=== PATIENT | male | born 1960 ===

== ENCOUNTER 2023-07-29 13:08 | Day surgery (SDC) | payer OTHER ==
[~2023-07-29] VITALS: Ht 185.4 cm; Wt 115.0 kg
[~2023-07-29 13:08] MED LIST: Balanced Salt Epinephrine Irrigation Solution 500 mL IR SCH; Lidocaine HCl/Pf 1% 5 ML VIAL XX SCH; Moxifloxacin HCL 0.5 MG/0.1 ML 0.4MLSYR RIGHTEYE SCH; NS 500 ML IV ONE; PHENYLEPHRINE\\TROPICAMIDE\\TETRACAINE OPHTHALMIC DILATING SOLN RIGHTEYE PRN; Povidone-Iodine 450 DROP/30 ML Solution RIGHTEYE SCH
[2023-07-29] MEDS ORDERED: NS 1,000 ML IV ONE (13:29)
[2023-07-29] MEDS ORDERED: FentaNYL Citrate 50 MCG/ML 2 ML Injection ONE (13:46)
[2023-07-29] MEDS ORDERED: Midazolam HCl 1MG / ML 2ML Vial ONE (13:46)
[2023-07-29] MEDS ORDERED: Tetracaine HCl 0.5% Opth Soln 15 ml RIGHTEYE ONE (14:08)
[2023-07-29] MEDS ORDERED: Naloxone HCl 0.4MG / ML 1ML Vial ONE (14:14)
[2023-07-29] MEDS ORDERED: Vasopressin 20 UNITS/ML 1ML Vial ONE (14:16)
--- NOTE | 2023-07-29 14:49 | NUR ---
07/29/23 1449 VAIBHAV OCAMPO PT STATES THAT HE IS SLEEPY, DIDN'T GET A GOOD NIGHT SLEEP.
== END 2023-07-29 15:13 | disposition home or self-care (01) ==
LOC: ORSCSDS 13:08
PROVIDERS: Student in an Organized Health Care Education/Training Program
PROC: 08RJ3JZ Replacement of Right Lens with Synthetic Substitute, Percutaneous Approach (ICD-10-PCS; principal; 2023-07-29 14:30)
DX: H25.11 Age-related nuclear cataract, right eye (principal); H21.81 Floppy iris syndrome
CPT/HCPCS: J2250; J2310; J3010; J7040; V2632